=== PATIENT | male | born 2000 | race Caucasian/White ===

== ENCOUNTER 2019-09-08 21:44 | Emergency (ER) | payer BC ==
--- NOTE | 2019-09-08 23:16 | EDM.PDOC ---
ED HPI GENERAL MEDICAL PROBLEM - General Chief Complaint: Genitourinary Problem Stated Complaint: GROIN PAIN Time Seen by Provider: 09/08/19 23:15 - History of Present Illness INITIAL COMMENTS - FREE TEXT/NARRATIVE: 19-year-old male presents the emergency room with left-sided groin pain. Patient noticed this yesterday today became more uncomfortable especially with activity lifting and pulling. The patient has not had any nausea vomiting fevers chills diarrhea or any abdominal pain. The patient has not had a swelling like this in the past. 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 Past medical history is unremarkable except for mitral valve prolapse. Past surgical history significant for sinus surgery. He is not on any routine medications no known allergies. - Related Data Allergies Allergy/AdvReac Type Severity Reaction Status Date / Time No Known Allergies Allergy Verified 09/08/19 22:03 Home Meds: Home Meds . [No Known Home Meds] 09/08/19 [History] Past Medical History Cardiovascular History: Reports: Other (See Below) Other Cardiovascular History: mitral valve prolapse Respiratory History: Reports: Other (See Below) Other Respiratory History: seasonal allergies - Past Surgical History HEENT Surgical History: Reports: Naso-Sinus Surgery Social & Family History - Family History Family Medical History: Noncontributory - Tobacco Use Smoking Status *Q: Current Every Day Smoker Years of Tobacco use: 1 Packs/Tins Daily: 1 - Caffeine Use Caffeine Use: Reports: Coffee, Energy Drinks, Soda, Tea - Recreational Drug Use Recreational Drug Use: No ED ROS GENERAL - Review of Systems Review Of Systems: See Below Constitutional: Reports: No Symptoms HEENT: Reports: No Symptoms Respiratory: Reports: No Symptoms Cardiovascular: Reports: No Symptoms GI/Abdominal: Reports: No Symptoms : Reports: Pain (Inguinal pain) Musculoskeletal: Reports: No Symptoms Skin: Reports: No Symptoms Neurological: Reports: No Symptoms Psychiatric: Reports: No Symptoms ED EXAM, GI/ABD - Physical Exam Exam: See Below Exam Limited By: No Limitations General Appearance: Alert, No Apparent Distress Head: Atraumatic, Normocephalic Neck: Normal Inspection, Supple, Non-Tender, Full Range of Motion Respiratory/Chest: No Respiratory Distress, Lungs Clear, Normal Breath Sounds Cardiovascular: Regular Rate, Rhythm, No Edema, No Murmur GI/Abdominal Exam: Normal Bowel Sounds, Soft, Non-Tender, No Organomegaly, No Distention, No Abnormal Bruit (Male) Exam: Other (Has a left inguinal hernia worse when he stands up). No: No Hernia, Scrotum Tenderness (L), Scrotum Tenderness (R), Testicular Mass, Testicular Tenderness (L) Extremities: Normal Inspection, No Pedal Edema Neurological: Alert, Oriented, Normal Cognition Course - Vital Signs Last Recorded V/S: Last Vital Signs Temp 36.8 C 09/08/19 22:00 Pulse 82 09/08/19 22:00 Resp 18 09/08/19 22:00 BP 134/84 09/08/19 22:00 Pulse Ox 98 09/08/19 22:00 - Re-Assessments/Exams Free Text/Narrative Re-Assessment/Exam: 09/08/19 23:28 Patient has a left inguinal hernia not obstructing non-strangulated. Case discussed with to the patient in clinic in the next couple of days. Departure - Departure Time of Disposition: 23:29 Disposition: Home, Self-Care 01 Clinical Impression: Left inguinal hernia - Discharge Information Referrals: PCP,None [Primary Care Provider] - Lizy Rutherford MD [Physician] - Forms: ED Department Discharge, ED Return to Work/School Form Additional Instructions: Return to the emergency room with any questions problems or worsening symptoms. Return immediately if you develop any nausea vomiting abdominal pain fevers chills or any concerning symptoms. Follow-up with Dr. Rutherford on Sunday or Sunday As your employment requires lots of heavy lifting and pulling you should probably stay off work for a while Sepsis Event Note (ED) - Evaluation Sepsis Screening Result: No Definite Risk - Focused Exam Vital Signs: Vital Signs Temp Pulse Resp BP Pulse Ox 09/08/19 22:00 36.8 C 82 18 134/84 98
== END 2019-09-08 23:39 | disposition home or self-care (01) ==
LOC: JD.ED 21:44
DX: K40.90 Unilateral inguinal hernia, without obstruction or gangrene, not specified as recurrent (principal); F17.210 Nicotine dependence, cigarettes, uncomplicated
CPT/HCPCS: 99282; 99283